=== PATIENT | male | born 1995 | race Caucasian/White ===

== ENCOUNTER 2024-01-02 20:58 | Emergency (ER) | payer OTHER ==
[~2024-01-02] VITALS: Ht 167.6 cm; Wt 63.0 kg
[2024-01-02 21:12] VITALS: BP 160/100; PULSE 120; RESP 16; TEMP 98; O2SAT 100
== END 2024-01-02 21:49 ==
LOC: MED 20:58
DX: Z02.89 Encounter for other administrative examinations (principal); V89.2XXA Person injured in unspecified motor-vehicle accident, traffic, initial encounter; Y93.89 Activity, other specified; Y92.410 Unspecified street and highway as the place of occurrence of the external cause; Y99.8 Other external cause status
CPT/HCPCS: 99283